=== PATIENT | female | born 1980 | race Caucasian/White ===

== ENCOUNTER → 2016-05-28 | Outpatient (CLI) | payer OTHER ==
--- NOTE | 2016-05-28 11:15 | US ---
May 28, [address] Schmidt, Thank you for requesting consultation and a detailed obstetrical ultrasound for Mrs. Lester secondary to advanced maternal age. As you know, Celine is a 35 year old G 3, P 2002 . Her due date is 10/04 10/20 by early ultrasound. Her current gestational age based on this dating is 19 weeks 3 days. Her genetic screening revealed a reassuring Panorama NIPT. ULTRASOUND Number of fetuses: 1 Placental location: Posterior; no evidence of previa Placental cord insertion: Intraplacental presentation: Cephalic Cervix: 5.0 cm viewed transabdominally Maximum Vertical Pocket: 5.3 cm The adnexa were evaluated. No pathology was seen. Right ovary is visualized and appears normal. It measures 2.3 x 1.0 x 3.0 cm. Left ovary is visualized and appears normal. It measures 3.5 x 2.1 x 1.0 cm. MEASUREMENTS: Biparietal diameter: 44 mm 19 weeks, 2 days Head circumference: 167 mm 19 weeks, 3 days Abdominal circumference: 144 mm 19 weeks, 6 days Femur length: 30 mm 19 weeks, 3 days Humerus length: 32 mm 20 weeks, 6 days Transcerebellar diameter: 20 mm 19 weeks, 2 days Average ultrasound age: 19 weeks, 6 days Estimated weight: 297 gm weight percentile: 51% ANATOMY Supratentorial brain: Normal including views of the falx, cavum septum pellucidum and choroids Lateral Ventricle: Normal, measuring 5.3 mm Posterior fossa: Normal including the cerebellum and cisterna magna Spine: Normal Nuchal fold: 4.3 mm normal Face: Normal views of the lip and nose area Profile: Normal Palate: Normal appearance of the alveolar ridge Cardiac Exam: Four chamber view of the heart: Normal including intraventricular septum Left Ventricular Outflow Tract: Normal Right Ventricular Outflow Tract: Normal 3 Vessel View: Normal Tracheal View: Limited views Aortic Arch: Normal Ductal Arch: Normal SVC/IVC: Normal Heart Rate: 140 bpm Diaphragm: No overt abnormalities have been detected Stomach: Normal Umbilical cord insertion: Normal Right kidney: Normal Left kidney: Normal Bladder: Normal Number of cord vessels: Three Upper extremities: Normal including the number, and architecture Lower extremities: Normal including the number and architecture Gender: Female IMPRESSION: 1. Intrauterine at 19 w 3 d, RADHA of 10/19/16. This is consistent with her previously esta blished dates. 2. Today's sonogram reveals a normal appearing fetus. 3. Cervical length measures 5.0 cm, and is without evidence of insufficiency. 4. Advanced maternal age RECOMMENDATIONS: I was pleased to review today's ultrasound with your patient. I have reassured her that the gr owth and amniotic fluid volume are appropriate for this gestational age. The detailed anatomic surve y did not reveal any overt abnormalities. Celine is aware that ultrasound is a screening tool and cannot provide definitive genetic diagnosis. Should she desire definitive genetic diagnosis, luana carlton would need to have a genetic amniocentesis performed. After our discussion regarding the procedure , benefits, risks, alternatives, and limitations to the information received Celine DECLINES amniocen tesis. Future ultrasound and consultation is left to your clinical discretion. Thank you for allowing me the opportunity to consult and evaluate your patient. Should you have any questions or concerns please do not hesitate to contact me. This visit was approximately 15 minutes in length with 10 minutes spent in direct face to face consultation reviewing aneuploidy screening ve rsus definitive genetic diagnosis. Sincerely, Renae Mcghee MD [employer] [facility] Department of Obstetrics & Gynecology [facility]
--- NOTE | 2016-05-28 16:40 | US ---
Complete Obstetric Ultrasound History: 35-year-old with estimated gestational age of 19 weeks 3 days and EDC of October 19, 2016. Comparison: OB ultrasound April 10, 2016. Findings: Number: 1 Presentation: Vertex Placental location: Posterior. No previa. Cervix: Closed, measuring 5.0 cm transabdominally Maximum vertical pocket: 5.3 cm The ovaries are normal. Biometry: Biparietal diameter: 44 mm 19 weeks, 2 days Head circumference: 167 mm 19 weeks, 3 days Abdominal circumference: 144 mm 19 weeks, 6 days Femur length: 30 mm 19 weeks, 3 days Humerus length: 32 mm 20 weeks, 6 days Transcerebellar diameter: 20 mm 19 weeks, 2 days Average ultrasound age: 19 weeks, 4 days EDC based on today's average ultrasound age: October 18, 2016 Estimated weight is 297 gms +/- 43 gms. The estimated weight percentile is 51 % based on previous dating. ANATOMY SURVEY: Supratentorial brain: Normal Posterior fossa: Normal Spine: Normal Nose and lips: Normal Heart: Four chamber heart with heart rate of 140. The outflow tracts are normal. Stomach: Normal Umbilical cord insertion: Normal Kidneys: Normal Bladder: Normal Number of cord vessels: Three Upper extremities: Normal Lower extremities: Normal Impression: 1. Living single intrauterine with size concordant with dates. 2. Unremarkable anatomy. Please see separate dictation for consultation performed by , the same day.
== END ==
LOC: FIMAGING 09:44
PROVIDERS: ATTEND Student in an Organized Health Care Education/Training Program
DX: O09.522 Supervision of elderly multigravida, second trimester (principal); Z3A.19 19 weeks gestation of pregnancy